=== PATIENT | female | born 1955 | race Two or more races ===

== ENCOUNTER 2018-03-01 08:58 | Emergency (ER) | payer OTHER, MEDICAID ==
[~2018-03-01] VITALS: Ht 167.6 cm; Wt 85.7 kg
[~2018-03-01 08:58] MED LIST: ACET500C5 PO; IBUP-1542 PO
[2018-03-01 09:00] VITALS: BP 135/63; PULSE 94; RESP 20; Ht 167.6 cm; Wt 85.7 kg
--- NOTE | 2018-03-01 10:18 | ERD ---
ER Documentation Chief Complaint Chief Complaint Complains of a headache since last night HPI 62-year-old female complaining of headache since last night. Patient reports sudden onset headache that woke her up from sleep. She described headache as sharp and constant, and centered in her right parietal region. Patient had a basal cell cancer removal her scalp on February 01, 2018. Patient states that she has additional cancer cells that need to be removed on her scalp. The pain is located around the site of the surgery and to the right. She took Tylenol 2 hours ago without relief of pain. Denies fever or chills. Denies blurry vision or photophobia. Denies one-sided weakness or numbness. Patient reports slightly nauseous, but denies vomiting. ROS All systems reviewed and are negative except as per history of present illness. Medications Home Meds Active Scripts Ibuprofen* (Motrin*) 600 Mg Tab, 600 MG PO Q6H PRN for PAIN AND OR ELEVATED TEMP, #30 TAB Prov:HEIDI EPSTEIN VISUAL MERCHANDISING MANAGER 03/01/18 Acetaminophen* (Tylophen*) 500 Mg Capsule, 1 CAP PO Q6H PRN for PAIN AND OR ELEVATED TEMP, #30 CAP Prov:CRISTA GREENWOOD PA-C 11/15/15 Ibuprofen* (Motrin*) 600 Mg Tab, 600 MG PO Q6, #30 TAB Prov:CRISTA GREENWOOD PA-C 11/15/15 Allergies Allergies: Uncoded Allergies: PENCILIN (Allergy, Unknown, 03/01/18) PMhx/Soc History of Surgery: Yes (TONSILLECTOMY, LT SHOULDER, SKIN CANCER REMOVAL) Anesthesia Reaction: No Hx Neurological Disorder: No Hx Respiratory Disorders: No Hx Cardiac Disorders: Yes (HIGH CHOLESTEROL) Hx Psychiatric Problems: No Hx Miscellaneous Medical Probl: Yes (DM) Hx Alcohol Use: No Hx Substance Use: No Hx Tobacco Use: Yes Smoking Status: Current every day smoker Physical Exam Vitals Vital Signs Date Temp Pulse Resp B/P (MAP) Pulse Ox O2 O2 Flow FiO2 Time Delivery Rate 03/01/18 98.7 94 20 135/63 99 09:00 (87) Physical Exam General: Well-developed, well-nourished, conscious and coherent, in no distress Skin: Warm and dry without rash, good texture and turgor Head: Normocephalic without evidence of trauma. Surgical scar on the coronal scalp, no erythema or tenderness Eyes: Sclera and conjunctivae normal; pupils equal, round, and reactive to light; extraocular movements are intact Ears: Canals are patent. Tympanic membranes are clear Neck: Supple without meningismus or adenopathy. Carotids are equal. Trachea midline. No bruits or JVD Chest: Normal AP diameter. Good expansion without retractions. Nontender. Lungs are clear to auscultate bilaterally with good tidal volume Heart: Regular rate and rhythm. No murmur, rub, or gallops heard Extremities: Full range of motion. Good strength bilaterally. No erythema, ecchymosis, or edema. Peripheral pulses are intact. Sensation intact Neuro: Alert and oriented 4; GCS 15. Cranial nerves II - XII intact. Motor sensory exam nonfocal. Moves all extremities. Deep tendon reflexes 2+ in all extremities. Speech clear. No pronator drift. Gait steady. Results 24 hrs Current Medications Medications Dose Sig/Zandra Start Time Status Last (Trade) Ordered Route PRN Stop Time Admin Dose Reason Admin Ibuprofen 600 mg ONCE ONCE 03/01/18 DC 03/01/18 (Motrin) PO 10:30 10:18 03/01/18 10:31 PROCEDURE: CT Brain without contrast. CLINICAL INDICATION: Headache. TECHNIQUE: A CT of the brain without contrast was performed utilizing axial sections from the skull base through the vertex. One or more the following does reduction techniques were utilized: Automated exposure control, adjustment of the mA/ or kV according to patient's size, or use of iterative reconstruction technique. Total exam CTDIvol is 39.34 MGy and DLP is 634.23 mGy-cm. DICOM images are available. COMPARISON: None available. FINDINGS: The ventricles and sulci are mildly prominent indicative of volume loss. There is no intracranial hemorrhage, mass effect or midline shift. No abnormal intra- axial or extra-axial fluid collections are seen. The irby/white matter differentiation is preserved. There are mild foci of hypoattenuation in the white matter, which are nonspecific in etiology but likely reflect chronic small vessel ischemic change s. There are mild intracranial vascular calcifications consistent with atherosclerosis. The visualized paranasal sinuses demonstrate mild to moderate mucosal thickening or pronounced in ethmoid air cells and sphenoid sinuses. The mastoid air cells are essentially clear. IMPRESSION: 1. No acute intracranial hemorrhage, transcortical infarction or mass effect. 2. Mild intracranial atherosclerosis and chronic small vessel ischemic changes. 3. Mild generalized cerebral volume loss. 4. Mild to moderate paranasal sinus disease. RPTAT: UU .Jarrett Schultz MD, MD Date Time Electronically viewed and signed by .Jarrett Schultz MD, MD on 03/01/2018 11:38 .N/ CC: HEIDI EPSTEIN. VISUAL MERCHANDISING MANAGER Procedures/MDM Well-appearing 62-year-old female presented to ED complaining of headache since last night. CT head was obtained to rule out intracranial etiologies. CT head was negative. Her neuro exams are normal. I doubt meningitis, encephalitis, giant cell arteritis, glaucoma, subarachnoid hemorrhage, subdural or epidural hematoma, intracranial bleeding or tumor. Patient's headache resolved after ibuprofen in the ED. It is uncertain whether patient has scalp pain or headache. Patient advised to follow-up with her PCP and jockey agent. Patient appears well, stable for discharge and outpatient management. Medical decision making shared with patient and family. Education provided to patient and family. Patient and family expressed understanding of the plan. Medications on discharge: Ibuprofen. Follow-up: Primary care provider in 2-3 days or return to ED if worse. Disclaimer: Inadvertent spelling and grammatical errors are likely due to EHR/dictation software use and do not reflect on the overall quality of patient care. Also, please note that the electronic time recorded on this note does not necessarily reflect the actual time of the patient encounter. Departure Diagnosis: Primary Impression: Headache Condition: Stable HEIDI EPSTEIN NP Mar 01, 2018 10:18
[2018-03-01] MEDS ORDERED: IBUPROFEN 600 MG TAB PO ONE (10:30)
[2018-03-01] MEDS ORDERED: IBUP-1542 PO (12:00)
== END 2018-03-01 12:04 | disposition home or self-care (01) ==
LOC: FTE 08:58
DX: R51 Headache (principal); E11.9 Type 2 diabetes mellitus without complications; F17.210 Nicotine dependence, cigarettes, uncomplicated; Z85.828 Personal history of other malignant neoplasm of skin
CPT/HCPCS: 70450

== ENCOUNTER 2018-06-28 12:35 | Emergency (ER) | payer MEDICARE, OTHER ==
[~2018-06-28] VITALS: Wt 86.9 kg
[2018-06-28] MEDS ORDERED: ERYT1OIN6 RIGHT EYE (13:45)
--- NOTE | 2018-06-28 13:49 | ERD ---
ER Documentation Chief Complaint Chief Complaint RIGHT EYE DRAINAGE, REDNESS, AND PAIN X 4 DAYS HPI 62-year-old female with past medical history of diabetes type 2, hyperlipidemia, who presents the ER for concerns of right lower eyelid redness, drainage and pain. Patient states she had symptoms over the last 4 days. Patient denies any fevers or chills. Patient denies any visual changes. Patient denies any nausea, vomiting,, headache or LOC. ROS All systems reviewed and are negative except as per history of present illness. Medications Home Meds Active Scripts Erythromycin Base (Erythromycin) 1 Gm Oint...g., 1 APPLIC RIGHT EYE QID for 7 Days Prov:JUAN MIGUEL MOISE PA-C 06/28/18 Ibuprofen* (Motrin*) 600 Mg Tab, 600 MG PO Q6H PRN for PAIN AND OR ELEVATED TEMP, #30 TAB Prov:HEIDI EPSTEIN TERRITORY MANAGER 03/01/18 Acetaminophen* (Tylophen*) 500 Mg Capsule, 1 CAP PO Q6H PRN for PAIN AND OR ELEVATED TEMP, #30 CAP Prov:CRISTA GREENWOOD PA-C 11/15/15 Ibuprofen* (Motrin*) 600 Mg Tab, 600 MG PO Q6, #30 TAB Prov:CRISTA GREENWOOD PA-C 11/15/15 Allergies Allergies: Uncoded Allergies: PENCILIN (Allergy, Unknown, 03/01/18) PMhx/Soc History of Surgery: Yes (TONSILLECTOMY, LT SHOULDER, SKIN CANCER REMOVAL) Anesthesia Reaction: No Hx Neurological Disorder: No Hx Respiratory Disorders: No Hx Cardiac Disorders: Yes Hx Psychiatric Problems: No Hx Miscellaneous Medical Probl: Yes (DM) Hx Alcohol Use: No Hx Substance Use: No Hx Tobacco Use: Yes FmHx Family History: diabetes Physical Exam Vitals Vital Signs Date Temp Pulse Resp B/P (MAP) Pulse Ox O2 O2 Flow FiO2 Time Delivery Rate 06/28/18 98.5 82 16 136/66 98 12:45 (89) Physical Exam GENERAL: Well-developed, well-nourished female. Appears in no acute distress. HEAD: Normocephalic, atraumatic. EYES: Pupils are equally reactive bilaterally. EOMs grossly intact. No conjunctival erythema. R lower eyelid stye noted. No periorbital redness or swelling. No pain with EOMs. No proptosis. ENT: Moist mucous membranes. No uvula deviation. No kissing tonsils. NECK: Supple. No meningismus. Normal range of motion of the neck. LUNG: Clear to auscultation bilaterally. No rhonchi, wheezing, rales or coarse breath sounds. HEART: Regular rate and rhythm. No murmurs, rubs or gallops. EXTREMITIES: Equal pulses bilaterally. No peripheral clubbing, cyanosis or edema. No unilateral leg swelling. NEUROLOGIC: Alert and oriented. Moving all four extremities without any difficulty. Normal speech. Steady gait. SKIN: Normal color. Warm and dry. No rashes or lesions. Procedures/MDM MEDICAL DECISION MAKING: This is a 62-year-old female with past medical history of DM type II, hyperlipidemia presents the ER for concerns of right lower eyelid swelling and pain x4 days. Vital signs were reviewed. Patient was afebrile. Eye exam did reveal a stye in the right lower eyelid. No surrounding erythema, swelling or warmth. Patient had no pain with EOMs. Patient had no proptosis. Low suspicion for periorbital cellulitis or orbital cellulitis. Patient was advised to monitor symptoms closely. Patient advised to follow-up with an eyeglass maker in the next 1 to 2 days. [facility] information given. Patient was advised to continue using warm compresses to the affected areas. Low suspicion for deep space infection, glaucoma, retained foreign body. Patient was nontoxic, [id number] prior to discharge. PRESCRIPTIONS: Erythromycin ointment DISCHARGE: At this time, patient is stable for discharge and outpatient management. Sup portive measures were discussed with patient including warm/cool compresses. Patient advised not to wear contact lenses or eye makeup. I have instructed the patient to follow-up with his/her primary care physician in 1-2 days. I have discussed with the patient the possibility of needing to see an eyeglass maker for further workup if symptoms persist. I have instructed the patient to promptly return to the ER for any new or worsening symptoms including increased pain, fever, swelling, redness, warmth, nausea, vomiting, . The patient and/or family expressed understanding of and agreement with this plan. All questions were answered. Home care instructions were provided. Disclaimer: Inadvertent spelling and grammatical errors are likely due to EHR/dictation software use and do not reflect on the overall quality of patient care. Also, please note that the electronic time recorded on this note does not necessarily reflect the actual time of the patient encounter. Departure Diagnosis: Primary Impression: Stye Laterality: right Eyelid: lower Qualified Codes: H00.012 - Hordeolum externum right lower eyelid Condition: Fair Patient Instructions: Sty Additional Instructions: Follow-up with an eye doctor. See referral information. Call your primary care doctor TOMORROW for an appointment during the next 1-2 days.See the doctor sooner or return here if your condition worsens before your appointment time. JUAN MIGUEL MOISE PA-C June 28, 2018 13:49
[2018-06-28 14:21] VITALS: BP 139/67; PULSE 79; RESP 16
== END 2018-06-28 14:23 | disposition home or self-care (01) ==
LOC: FTE 12:35
DX: H00.012 Hordeolum externum right lower eyelid (principal); E11.9 Type 2 diabetes mellitus without complications
CPT/HCPCS: 99283

== ENCOUNTER 2018-09-17 12:00 | Emergency (ER) | payer MEDICARE, OTHER ==
[~2018-09-17] VITALS: Ht 160 cm; Wt 78.2 kg
[~2018-09-17 12:00] MED LIST changes: +CEPH-443 PO; +ERYT1OIN6 RIGHT EYE; +MUPI22OI2 TOP; +SULF1TAB31 PO
[2018-09-17 12:02] VITALS: BP 123/58; PULSE 91; RESP 18; Ht 160 cm; Wt 78.2 kg
--- NOTE | 2018-09-17 12:19 | ERD ---
ER Documentation Chief Complaint Chief Complaint rash x 1 week to pt's lower half starting from the pelvic area HPI 62-year-old female, presents to the emergency department, complaining of 1 week with painful, erythematous lesions in bilateral lower extremities and pelvic area. The patient denies fever or chills. No medications taken at this time. ROS All systems reviewed and are negative except as per history of present illness. Medications Home Meds Active Scripts Mupirocin* (Bactroban*) 2% -22 Gram Oint...g., 1 APPLIC TOP BID for 7 Days, EA Prov:ARMANDO METCALF MD 09/17/18 Sulfamethoxazole/Trimethoprim* (Bactrim Ds* Tablet) 1 Each Tablet, 1 TAB PO BID, #14 TAB Prov:ARMANDO METCALF MD 09/17/18 Cephalexin* (Keflex*) 500 Mg Capsule, 500 MG PO BID for 7 Days, CAP Prov:ARMANDO METCALF MD 09/17/18 Erythromycin Base (Erythromycin) 1 Gm Oint...g., 1 APPLIC RIGHT EYE QID for 7 Days Prov:JUAN MIGUEL MOISE PA-C 06/28/18 Ibuprofen* (Motrin*) 600 Mg Tab, 600 MG PO Q6H PRN for PAIN AND OR ELEVATED TEMP, #30 TAB Prov:HEIDI EPSTEIN NP 03/01/18 Acetaminophen* (Tylophen*) 500 Mg Capsule, 1 CAP PO Q6H PRN for PAIN AND OR ELEVATED TEMP, #30 CAP Prov:CRISTA GREENWOOD PA-C 11/15/15 Ibuprofen* (Motrin*) 600 Mg Tab, 600 MG PO Q6, #30 TAB Prov:CRISTA GREENWOOD PA-C 11/15/15 Allergies Allergies: Uncoded Allergies: PENCILIN (Allergy, Unknown, 03/01/18) PMhx/Soc History of Surgery: Yes (TONSILLECTOMY, LT SHOULDER, SKIN CANCER REMOVAL) Anesthesia Reaction: No Hx Neurological Disorder: No Hx Respiratory Disorders: No Hx Cardiac Disorders: Yes Hx Psychiatric Problems: No Hx Miscellaneous Medical Probl: Yes (DM) Hx Alcohol Use: No Hx Substance Use: No Hx Tobacco Use: Yes Physical Exam Vitals Vital Signs Date Temp Pulse Resp B/P (MAP) Pulse Ox O2 O2 Flow FiO2 Time Delivery Rate 09/17/18 99.2 91 18 123/58 99 12:02 (79) Physical Exam Const: No acute distress Head: Atraumatic Eyes: Normal Conjunctiva ENT: Normal External Ears, Nose and Mouth. Neck: Full range of motion. No meningismus. Resp: Clear to auscultation bilaterally Cardio: Regular rate and rhythm, no murmurs Abd: Soft, non tender, non distended. Normal bowel sounds Skin: Multiple erythematous, pustular lesions in bilateral lower extremities, no fluctuance, no petechiae or rashes Back: No midline or flank tenderness Ext: No cyanosis, or edema Neur: Awake and alert Psych: Normal Mood and Affect Procedures/MDM Vital signs stable, differential diagnosis include but not limited to: DVT, superficial thrombosis, cellulitis, erysipelas, shingles, abscess. Low suspicion for acute systemic infectious process. Physical examination and clinical presentation consistent most likely with furunculosis. During the ED course the patient remained stable, no new complaints. Results and clinical impression discussed with the patient who agrees with management. The patient is stable to be treated outpatient and will be discharged home with a Rx for antibiotics, some side effects of prescribed medications (headache, rash, nausea, vomiting, diarrhea, drowsiness, habituation, bleeding, hypertension, interactions with other medications) were reviewed. The patient was instructed to follow up with the primary care provider in the next 48h. If symptoms persist, worsen or new symptoms develop, then patient should return to the ED immediately. Instructions explained and given directly by me to the patient and relatives with acknowledgment and demonstrated understanding. Disclaimer: Inadvertent spelling and grammatical errors are likely due to EHR/dictation software use and do not reflect on the overall quality of patient care. Also, please note that the electronic time recorded on this note does not necessarily reflect the actual time of the patient encounter. Departure Diagnosis: Primary Impression: Forunculosis Condition: Stable Additional Instructions: Muchas rosa por [facility] para stewart servicio. Esperamos que en stewart visita a la richie de emergencia stewart problema medico haya sido solucionado y que se sienta mucho mejor. Para estar seguros que stewart mejoria sigue en proceso, le pedimos el favor de hacer betty nava de seguimiento medico con stewart doctor primario en los proximos 2-4 leon. Lleve con usted estos documentos y las medicinas recetadas. Si andrade sintomas empeoran, NO SE ESPERE, por favor regrese a richie de emergencia INMEDIATAMENTE. En luiza que usted no tenga un mdico de atencin primaria: Llame al mdico o clnica comunitaria de referencia que aparece abajo ravinder las horas de consultorio para hacer betty nava para que le vean. CLINICAS: [facility] [phone] [facility] [phone] [address] [facility] [phone] [facility] [phone] [address] [place] [id number] [phone] [facility]. [phone] ARMANDO MATOS MD Sep 17, 2018 12:19
== END 2018-09-17 12:26 | disposition home or self-care (01) ==
LOC: E/R 12:00
DX: L02.92 Furuncle, unspecified (principal); E11.9 Type 2 diabetes mellitus without complications; Z87.891 Personal history of nicotine dependence; Z85.828 Personal history of other malignant neoplasm of skin
CPT/HCPCS: 99283